=== PATIENT | male | born 1995 | race American Indian/Alaskan Native ===

== ENCOUNTER 2016-07-25 08:01 | Emergency (ER) | payer SELFPAY ==
[2016-07-25 08:26] LABS: Basophils % (Auto) 0.5 % (0.0-1.8); Eosinophils % (Auto) 0.9 % (0.0-4.3); Hematocrit 48.3 % (35.5-45.6); Hemoglobin 16.3 gm/dl (11.8-15.2); Mean Corpuscular HGB Conc 34 % (32-34); Mean Corpuscular Hemoglobin 31 pg (28-32); Mean Corpuscular Volume 91 fl (84-94); Platelet Count 259 K/mm3 (140-440); Red Blood Count 5.28 M/mm3 (3.65-5.03); Red Cell Distribution Width 12.8 % (13.2-15.2); White Blood Count 6.7 K/mm3 (4.5-11.0)
[2016-07-25 08:40] LABS: Anion Gap 20 mmol/L; BUN/Creatinine Ratio 13.33; Blood Urea Nitrogen 12 mg/dL (9-20); Calcium 9.1 mg/dL (8.4-10.2); Carbon Dioxide 27 mmol/L (22-30); Chloride 99.7 mmol/L (98-107); Glucose 117 mg/dL (75-100); Potassium 4.2 mmol/L (3.6-5.0); Sodium 142 mmol/L (137-145)
[2016-07-25] MEDS ORDERED: ZOFRAN IV ONE (09:04)
[2016-07-25] MEDS ORDERED: NACL 0.9% 1000 ML 1,000 ML IV ONE (09:04)
[2016-07-25 09:05] LABS: Bilirubin,Urine NEG (Negative); Blood,Urine NEG (Negative); Ketones,Urine TR mg/dL (Negative); Leukocyte Esterase,Urine NEG (Negative); Nitrite,Urine NEG (Negative); Protein,Urine <15 mg/dL mg/dL (Negative); RBC,Urine < 1.0 /HPF (0.0-6.0); Urobilinogen,Urine < 2.0 mg/dL (<2.0); WBC,Urine < 1.0 /HPF (0.0-6.0)
[2016-07-25] MEDS ORDERED: LACTATED RINGERS 1,000 ML IV ONE (09:05)
--- NOTE | 2016-07-25 09:09 | Emergency Department Report ---
ED N/V/D HPI - General Chief complaint: Nausea/Vomiting/Diarrhea Stated complaint: CANT HOLD FOOD DOWN Time Seen by Provider: 07/25/16 08:20 Source: patient Mode of arrival: Ambulatory Limitations: No Limitations - History of Present Illness Initial comments: This is a 21-year-old male well-nourished with nontoxic or ill in appearance that presents with nausea, vomiting, abdominal cramps for the past 5 days. Patient also c/o of diarrhea. Patient denies using any [id number] for the symptoms. Patient stated has been able to keep fluids with some food intake. Patient describes abdominal cramps as aching but denies abdominal pain. Patient describes abdominal cramps A level of a 3 out of a 10. Patient stated he went out to eat the day before and that night the symptoms has been occurring. Patient denies fever, chills, urinary symptoms, chest pain, shortness of breath, numbness or tingling sensation in extremities. Patient denies any drug allergies. MD complaint: nausea, vomiting, diarrhea, other (abdominal cramp) -: Gradual, days(s) (5) Description of Vomiting: food contents Description of Diarrhea: water Associated Abdominal Pain: No Location: diffuse Radiation: none Severity: mild Pain Scale: 3 Quality: cramping Consistency: intermittent Improves with: none Worsens with: none Associated Symptoms: denies other symptoms. denies: myalgias, chest pain, cough , diaphoresis, fever/chills, headaches, loss of appetite, malaise, nausea/ vomiting, rash, dysuria, shortness of breath, syncope, weakness - Related Data Previous Rx's Medication Instructions Recorded Last Taken Type Cyclobenzaprine [Flexeril 10 MG 10 mg PO TID PRN #20 tablet 12/05/14 Unknown Rx TAB] Ibuprofen [Motrin] 800 mg PO Q8HR #20 tablet 12/05/14 Unknown Rx traMADol [Ultram 50 MG tab] 50 mg PO Q6HR PRN #20 tablet 12/05/14 Unknown Rx Ondansetron [Zofran Odt] 4 mg PO Q8HR 5 Days 07/25/16 Unknown Rx Allergies Allergy/AdvReac Type Severity Reaction Status Date / Time No Known Allergies Allergy Unverified 12/05/14 09:55 ED Review of Systems ROS: Stated complaint: CANT HOLD FOOD DOWN Other details as noted in HPI Constitutional: denies: chills, fever Eyes: denies: eye pain, eye discharge, vision change ENT: denies: ear pain, throat pain Respiratory: denies: cough, shortness of breath, wheezing Cardiovascular: denies: chest pain, palpitations Endocrine: no symptoms reported Gastrointestinal: denies: abdominal pain, nausea, diarrhea Genitourinary: denies: urgency, dysuria Musculoskeletal: denies: back pain, joint swelling, arthralgia Skin: denies: rash, lesions Neurological: denies: headache, weakness, paresthesias Psychiatric: denies: anxiety, depression Hematological/Lymphatic: denies: easy bleeding, easy bruising ED Past Medical Hx - Past Medical History Previous Medical History?: No - Surgical History Past Surgical History?: No - Social History Smoking Status: Never Smoker Substance Use Type: None - Medications Home Medications: Home Medications Medication Instructions Recorded Confirmed Last Taken Type Cyclobenzaprine [Flexeril 10 MG 10 mg PO TID PRN #20 tablet 12/05/14 Unknown Rx TAB] Ibuprofen [Motrin] 800 mg PO Q8HR #20 tablet 12/05/14 Unknown Rx traMADol [Ultram 50 MG tab] 50 mg PO Q6HR PRN #20 tablet 12/05/14 Unknown Rx Ondansetron [Zofran Odt] 4 mg PO Q8HR 5 Days 07/25/16 Unknown Rx ED Physical Exam - General Limitations: No Limitations General appearance: alert, in no apparent distress - Head Head exam: Present: atraumatic, normocephalic - Eye Eye exam: Present: normal appearance, PERRL, EOMI - ENT ENT exam: Present: normal exam, normal orophraynx, mucous membranes moist, TM's normal bilaterally - Neck Neck exam: Present: normal inspection, full ROM. Absent: tenderness, meningismus, lymphadenopathy, thyromegaly - Respiratory Respiratory exam: Present: normal lung sounds bilaterally. Absent: respiratory distress, wheezes, rales, rhonchi, stridor - Cardiovascular Cardiovascular Exam: Present: regular rate, normal rhythm. Absent: systolic murmur, diastolic murmur, rubs, gallop - GI/Abdominal GI/Abdominal exam: Present: soft, normal bowel sounds. Absent: distended, tenderness, guarding, rebound, rigid, diminished bowel sounds, hyperactive bowel sounds, hypoactive bowel sounds, mass, bruit, pulsatile mass, hernia - Expanded GI/Abdominal Exam Expanded GI/Abdominal exam: Absent: psoas sign, obturator sign, Santos's sign, Rovsing's sign, tenderness at Mcburney's Point, ascites - Rectal Rectal exam: Present: deferred - Extremities Exam Extremities exam: Present: normal inspection, full ROM, normal capillary refill. Absent: tenderness, pedal edema, joint swelling, calf tenderness - Back Exam Back exam: Present: normal inspection, full ROM. Absent: tenderness, CVA tenderness (R), CVA tenderness (L), muscle spasm, paraspinal tenderness, vertebral tenderness, rash noted - Neurological Exam Neurological exam: Present: alert, oriented X3, CN II-XII intact, normal gait - Psychiatric Psychiatric exam: Present: normal affect, normal mood - Skin Skin exam: Present: warm, dry, intact, normal color. Absent: rash ED Course Vital Signs 07/25/16 08:06 Temperature 97.9 F Pulse Rate 67 Respiratory 18 Rate Blood Pressure 112/76 O2 Sat by Pulse 100 Oximetry - Reevaluation(s) Reevaluation #1: 07/25/16 10:00 Patient's data feels much better with no nausea or abdominal cramping. Patient thought a by mouth challenge well with no signs of vomiting or nausea. ED Medical Decision Making - Lab Data Result diagrams: 07/25/16 08:13 07/25/16 08:13 - Medical Decision Making Ed course: This is a 21-year-old male that presents with nausea and vomiting. 1- after my physical exam, lactated Ringer's 1000 mL and Zofran 4 mg IV as an prescribed. Patient stated he feels much better after medication. A by mouth challenge has been obtained with no signs of nausea or vomiting. Patient denies any nausea vomiting. Patient to do well. 2- lipase, amylase, CBC, BMP has been obtained in the ED with normal results. 3- patient received Zofran 4 mg by mouth at the time of discharge. 4- at time time of discharge, the patient does not seem toxic or ill in appearance. No acute signs of distress noted. Patient agrees to discharge treatment plan of care. No further questions noted by the patient. 5- patient was instructed to follow up with his primary care doctor in 3-5 days or if symptoms worsen and unbearable to report back to emergency room 6- Biliruben is elevated at 3.3. U/S was obtained of abdomen with normal findings. Dictated by Dr. Khan. Critical care attestation.: If time is entered above; I have spent that time in minutes in the direct care of this critically ill patient, excluding procedure time. ED Disposition Clinical Impression: Nausea & vomiting Qualifiers: Vomiting type: unspecified Vomiting Intractability: non-intractable Qualified Code(s): R11.2 - Nausea with vomiting, unspecified Disposition: DISCHARGED TO HOME OR SELFCARE Is pt being admited?: No Does the pt Need Aspirin: No Condition: Stable Instructions: Ondansetron (By mouth), Acute Nausea and Vomiting (ED) Additional Instructions: Follow-up with a primary care doctor in 3-5 days. if symptoms worsen and unbearable to report back to emergency room Take Zofran as needed in the presence of nausea/vomiting. Increase fluid intake as much as possible. Prescriptions: Ondansetron [Zofran Odt] 4 mg PO Q8HR 5 Days Referrals: KEILY CHAMBERLAIN MD [Primary Care Provider] - 3-5 Days KRISTOPHER SCHMID MD [Referring] - 3-5 Days [facility] [Outside] - 3-5 Days [facility] [Outside] - 3-5 Days Forms: Work/School Release Form(ED)
[2016-07-25 11:27] LABS: Amylase 91 units/L (27-131); Lipase 33 units/L (13-60)
[2016-07-25 11:31] LABS: Albumin 4.6 g/dL (3.9-5); Albumin/Globulin Ratio 1.5 %; Bilirubin,Direct 0.3 mg/dL (0-0.2); Bilirubin,Total 3.3 mg/dL (0.1-1.2); Total Protein 7.6 g/dL (6.3-8.2)
--- NOTE | 2016-07-25 12:23 | Ultrasound Report ---
ULTRASOUND ABDOMEN INDICATION: Elevated bilirubin, abdominal pain. COMPARISON: None similar. FINDINGS: Abdominal sonography demonstrates unremarkable liver. No gallstones or pericholecystic fluid. Gallbladder wall thickness is 1.8 mm. Common bile duct is 5.1 mm. Homogenous spleen estimated at 8.1 cm in length. No ascites. Visualized pancreas, nonaneurysmal abdominal aorta and IVC appear within normal limits. Nonhydronephrotic kidneys, 9.5 x 4.7 x 6 cm on the right with cortical thickness of 1.6 cm while 9.8 x 5.7 x 5.8 cm on the left with cortical thickness of 1.4 cm. CONCLUSION: No acute abdominal sonographic abnormality, as described. Thank you for the opportunity to participate in this patient's care.
[2016-07-25 12:56] VITALS: BP 110/76
== END 2016-07-25 12:56 | disposition home or self-care (01) ==
LOC: ED 08:01
DX: R11.2 Nausea with vomiting, unspecified (principal)
CPT/HCPCS: 36415; 76700; 80048; 80074; 81001; 82150; 83690; 85025; 96361; 96374; 99284; J2405; J7120

== ENCOUNTER 2016-12-14 14:47 | Emergency (ER) | payer SELFPAY ==
[2016-12-14 15:18] LABS: Basophils % (Auto) 0.1 % (0.0-1.8); Eosinophils % (Auto) 0.2 % (0.0-4.3); Hematocrit 48.1 % (35.5-45.6); Hemoglobin 16.3 gm/dl (11.8-15.2); Mean Corpuscular HGB Conc 34 % (32-34); Mean Corpuscular Hemoglobin 31 pg (28-32); Mean Corpuscular Volume 91 fl (84-94); Platelet Count 293 K/mm3 (140-440); Red Blood Count 5.28 M/mm3 (3.65-5.03); Red Cell Distribution Width 13.2 % (13.2-15.2); White Blood Count 9.4 K/mm3 (4.5-11.0)
[2016-12-14 16:03] LABS: Alanine Aminotransferase 14 units/L (7-56); Albumin 4.6 g/dL (3.9-5); Albumin/Globulin Ratio 1.7 %; Alkaline Phosphatase 50 units/L (35-129); Anion Gap 15 mmol/L; BUN/Creatinine Ratio 7; Blood Urea Nitrogen 8 mg/dL (9-20); Carbon Dioxide 28 mmol/L (22-30); Chloride 100.9 mmol/L (98-107); Glucose 85 mg/dL (75-100); Potassium 3.7 mmol/L (3.6-5.0); Sodium 140 mmol/L (137-145); Total Protein 7.3 g/dL (6.3-8.2)
--- NOTE | 2016-12-14 17:53 | Cat Scan Report ---
FINAL REPORT EXAM: CT HEAD/BRAIN WO CON HISTORY: headache, syncope TECHNIQUE: Noncontrast serial axial images from skull base to vertex. PRIORS: None. FINDINGS: There is no mass effect or midline shift. There are no abnormal intra or extra-axial fluid collections. Cortical sulci and lateral ventricles are within normal limits for size and configuration. Basilar cisterns are patent. No acute intracranial hemorrhage is identified. Visualized paranasal sinuses and mastoid air cells are well aerated. No acute osseous abnormality is identified. IMPRESSION: 1. No abnormal mass or acute intracranial hemorrhage is identified.
[2016-12-14] MEDS ORDERED: NACL 0.9% 1000 ML 1,000 ML IV ONE (18:18)
--- NOTE | 2016-12-14 18:24 | Emergency Department Report ---
ED Syncope HPI - General Chief Complaint: Headache Stated Complaint: SYNCOPE Time Seen by Provider: 12/14/16 17:28 - History of Present Illness Initial Comments: 21-year-old male here with complaint of syncopal episode. Patient was walking course history and began feeling hot and next thing he remembers he was found on the ground with paramedics around him. He denies any complaints at this point. He does have some mild head pain or he may have struck his head. No obvious laceration. He denies chest pain shortness of breath palpitations. No family history of syncope. Timing/Prior Episodes: no prior history Precipitating Factors: Positive: lightheadedness Loss of Consciousness: brief (seconds) Current Symptoms: back to normal - Related Data Allergies/Adverse Reactions: Allergies No Known Allergies Allergy (Verified 12/14/16 14:59) Home Medications: Ambulatory Orders Cyclobenzaprine [Flexeril 10 MG TAB] 10 mg PO TID PRN #20 tablet 12/05/14 Ibuprofen [Motrin] 800 mg PO Q8HR #20 tablet 12/05/14 traMADol [Ultram 50 MG tab] 50 mg PO Q6HR PRN #20 tablet 12/05/14 Ondansetron [Zofran Odt] 4 mg PO Q8HR 5 Days 07/25/16 ED Review of Systems ROS: Stated complaint: SYNCOPE Other details as noted in HPI Comment: All other systems reviewed and negative Respiratory: denies: cough, orthopnea Cardiovascular: syncope. denies: chest pain, palpitations Endocrine: flushing. denies: excessive sweating Gastrointestinal: denies: abdominal pain, nausea, vomiting Genitourinary: denies: urgency, dysuria Neurological: denies: headache, weakness ED Past Medical Hx - Past Medical History Previous Medical History?: No - Surgical History Past Surgical History?: No - Family History Family history: no significant - Social History Smoking Status: Never Smoker Substance Use Type: None - Medications Home Medications: Home Medications Medication Instructions Recorded Confirmed Last Taken Type Cyclobenzaprine [Flexeril 10 MG 10 mg PO TID PRN #20 tablet 12/05/14 Unknown Rx TAB] Ibuprofen [Motrin] 800 mg PO Q8HR #20 tablet 12/05/14 Unknown Rx traMADol [Ultram 50 MG tab] 50 mg PO Q6HR PRN #20 tablet 09/28/15 Unknown Rx Ondansetron [Zofran Odt] 4 mg PO Q8HR 5 Days 07/25/16 Unknown Rx ED Physical Exam - General Limitations: No Limitations General appearance: alert, in no apparent distress - Head Head exam: Present: atraumatic, normocephalic - Eye Eye exam: Present: normal appearance. Absent: scleral icterus, conjunctival injection - ENT ENT exam: Present: mucous membranes moist - Neck Neck exam: Present: normal inspection - Respiratory Respiratory exam: Present: normal lung sounds bilaterally. Absent: respiratory distress, wheezes - Cardiovascular Cardiovascular Exam: Present: regular rate, normal rhythm, normal heart sounds. Absent: systolic murmur, diastolic murmur, rubs, gallop - GI/Abdominal GI/Abdominal exam: Present: soft, normal bowel sounds. Absent: distended, tenderness - Rectal Rectal exam: Present: deferred - Extremities Exam Extremities exam: Present: normal inspection - Back Exam Back exam: Present: normal inspection - Neurological Exam Neurological exam: Present: alert, oriented X3 - Psychiatric Psychiatric exam: Present: normal affect, normal mood - Skin Skin exam: Present: warm, dry, intact, normal color. Absent: rash ED Course Vital Signs 12/14/16 15:00 Temperature 98.6 F Pulse Rate 100 H Respiratory 18 Rate Blood Pressure 109/68 O2 Sat by Pulse 100 Oximetry ED Medical Decision Making - Lab Data Result diagrams: 12/14/16 15:06 12/14/16 15:06 Laboratory Results - last 24 hr 12/14/16 12/14/16 15:06 15:06 WBC 9.4 RBC 5.28 H Hgb 16.3 H Hct 48.1 H MCV 91 MCH 31 MCHC 34 RDW 13.2 Plt Count 293 Lymph % (Auto) 7.3 L Lamb % (Auto) 6.4 Eos % (Auto) 0.2 Baso % (Auto) 0.1 Lymph # 0.7 L Lamb # 0.6 Eos # 0.0 Baso # 0.0 Seg Neutrophils % 86.0 H Seg Neutrophils # 8.1 H Sodium 140 Potassium 3.7 Chloride 100.9 Carbon Dioxide 28 Anion Gap 15 BUN 8 L Creatinine 1.1 Estimated GFR > 60 BUN/Creatinine Ratio 7 Glucose 85 Calcium 9.0 Total Bilirubin 2.60 H AST 22 ALT 14 Alkaline Phosphatase 50 Total Protein 7.3 Albumin 4.6 Albumin/Globulin Ratio 1.7 - EKG Data -: EKG Interpreted by Me - EKG Data 12/14/16 18:26 Sinus arrhythmia rate 84 normal axis normal intervals no ST-T wave changes - Medical Decision Making 21-year-old male with a syncopal episode. Presents emergency Department with no obvious source for his syncope. Patient states he felt somewhat warm right before he passed out. EKG and labs are unremarkable. Plan to get a chest x- ray and if negative plan discharge patient home with after IV fluids. Head CT ordered prior to my evaluation is negative. Chest x-ray negative. Portions of this chart were dictated with dictation software. There may be dictation errors contained within this note. Critical care attestation.: If time is entered above; I have spent that time in minutes in the direct care of this critically ill patient, excluding procedure time. ED Disposition Clinical Impression: Syncope Disposition: DC-01 TO HOME OR SELFCARE Is pt being admited?: No Condition: Stable Instructions: Syncope (ED) Referrals: PRIMARY CARE, [Primary Care Provider] - 3-5 Days
--- NOTE | 2016-12-14 19:02 | XRay Report ---
FINAL REPORT EXAM: XR CHEST 1V AP HISTORY: syncope TECHNIQUE: Single-view chest PRIORS: None. FINDINGS: No focal consolidations are seen in the lungs.The cardiomediastinal silhouette is within normal limits for size and contour. Thoracic scoliosis is noted. IMPRESSION: 1. No definite radiographic evidence of acute cardiopulmonary disease.
[2016-12-14 19:42] VITALS: BP 113/72
== END 2016-12-14 19:39 | disposition home or self-care (01) ==
LOC: ED 14:47
DX: R55 Syncope and collapse (principal)
CPT/HCPCS: 36415; 70450; 71010; 80053; 85025; 93005; 93010; 96360; 99284; J7030

== ENCOUNTER 2019-01-22 13:40 | Emergency (ER) | payer SELFPAY ==
[2019-01-22 15:28] VITALS: BP 115/72
--- NOTE | 2019-01-22 16:24 | Event Note ---
ED Screening Note Date of service: 01/22/19 Time: 16:22 ED Screening Note: 23 y o male resents with left ankle/foot pain s/p injury 5 days ago cc of worsening pain with walking and applied pressure This initial assessment/diagnostic orders/clinical plan/treatment(s) is/are subject to change based on patients health status, clinical progression and re- assessment by fellow clinical providers in the ED. Further treatment and workup at subsequent clinical providers discretion. Patient/guardian urged not to elope from the ED as their condition may be serious if not clinically assessed and managed. Initial orders include: xr ankle/foot acc eval
--- NOTE | 2019-01-22 16:44 | XRay Report ---
LEFT ANKLE 3 VIEWS INDICATION / CLINICAL INFORMATION: Left ankle injury 5 days ago, COMPARISON: None available. FINDINGS: BONES / JOINT(S): No acute fracture or subluxation. No significant arthritis. SOFT TISSUES: There is mild soft tissue swelling laterally and anteriorly. ADDITIONAL FINDINGS: None. Signer Name: Sreekanth Beckett MD Signed: 01/22/2019 4:39 PM Workstation Name: [email or web address]
--- NOTE | 2019-01-22 17:07 | Emergency Department Report ---
ED Lower Extremity HPI - General Chief Complaint: Extremity Injury, Lower Stated Complaint: LT FOOT INJURY Time Seen by Provider: 01/22/19 16:45 Source: patient Mode of arrival: Ambulatory Limitations: No Limitations - History of Present Illness Initial Comments: This is a 23-year-old -[place] male who presents to the emergency room with left ankle pain for 5 days. Patient states he injured his left ankle while at work last Friday. Patient states he fell in between a 18 [address]roy truck and a dock. Patient states his left foot got caught in a hole. He is experiencing pain and swelling to left lateral ankle. Patient states he is applying an Mariano, heat, and Epsom salts soaks with minimal improvement of symptoms. Patient states he is able to apply weight which increased pain. He denies numbness or tingling, bruising, weakness, or warmth to touch. MD Complaint: ankle injury (left) Onset/Timin -: days(s) Injury: Ankle: Left Type of Injury: unknown Place: work Severity: moderate Severity scale (0 -10): 6 Improves With: NSAID, cold therapy Worsens With: weight bearing, movement Context: fall Associated Symptoms: swelling, able to partially bear weight, ambulatory. denies: snap/pop sensation, numbness, tingling, unable to bear weight Treatments Prior to Arrival: cold therapy, NSAIDS - Related Data Previous Rx's Medication Instructions Recorded Last Taken Type Cyclobenzaprine [Flexeril 10 MG 10 mg PO TID PRN #20 tablet 12/05/14 Unknown Rx TAB] Ibuprofen [Motrin] 800 mg PO Q8HR #20 tablet 12/05/14 Unknown Rx traMADoL [Ultram 50 MG tab] 50 mg PO Q6HR PRN #20 tablet 12/05/14 Unknown Rx Ondansetron [Zofran Odt] 4 mg PO Q8HR 5 Days tab.rapdis 07/25/16 Unknown Rx Ibuprofen [Motrin 600 MG tab] 600 mg PO Q8H PRN #20 tablet 01/22/19 Unknown Rx Allergies Allergy/AdvReac Type Severity Reaction Status Date / Time No Known Allergies Allergy Verified 12/14/16 14:59 ED Review of Systems ROS: Stated complaint: LT FOOT INJURY Other details as noted in HPI Constitutional: denies: chills, fever Respiratory: denies: cough, shortness of breath, wheezing Cardiovascular: denies: chest pain, palpitations Gastrointestinal: denies: abdominal pain, nausea, diarrhea Musculoskeletal: joint swelling ( left ankle), arthralgia (left ankle). denies: back pain Skin: denies: rash, lesions Neurological: denies: headache, weakness, paresthesias Psychiatric: denies: anxiety, depression ED Past Medical Hx - Past Medical History Previous Medical History?: No - Surgical History Past Surgical History?: No - Social History Smoking Status: Never Smoker - Medications Home Medications: Home Medications Medication Instructions Recorded Confirmed Last Taken Type Cyclobenzaprine [Flexeril 10 MG 10 mg PO TID PRN #20 tablet 12/05/14 Unknown Rx TAB] Ibuprofen [Motrin] 800 mg PO Q8HR #20 tablet 12/05/14 Unknown Rx traMADoL [Ultram 50 MG tab] 50 mg PO Q6HR PRN #20 tablet 12/05/14 Unknown Rx Ondansetron [Zofran Odt] 4 mg PO Q8HR 5 Days tab.rapdis 07/25/16 Unknown Rx Ibuprofen [Motrin 600 MG tab] 600 mg PO Q8H PRN #20 tablet 01/22/19 Unknown Rx ED Physical Exam - General Limitations: No Limitations General appearance: alert, in no apparent distress - Respiratory Respiratory exam: Present: normal lung sounds bilaterally. Absent: respiratory distress - Cardiovascular Cardiovascular Exam: Present: regular rate, normal rhythm. Absent: systolic murmur, diastolic murmur, rubs, gallop - Extremities Exam Extremities exam: Present: full ROM, normal capillary refill. Absent: calf tenderness - Expanded Lower Extremity Exam Left Knee exam: Present: normal inspection, full ROM Lower Leg exam: Present: normal inspection, full ROM Ankle exam: Present: full ROM (pain with FROM), tenderness (tenderness and swelling to lateral malleolus), swelling. Absent: abrasion, laceration, ecchymosis, deformity, crepidus, dislocation, erythema, anterior draw sign Foot/Toe exam: Present: normal inspection, full ROM Neuro vascular tendon exam: Present: no vascular compromise Gait: Positive: observed and limited by pain - Neurological Exam Neurological exam: Present: alert, oriented X3, normal gait - Expanded Neurological Exam Expanded Sensory exam: Lower Extremity Light Touch: Normal, Lower Extremity Pin Prick: Normal, Lower Extremity Temperature: Normal, LE 2 Point Discrimination: Normal Motor strength exam: RUE: 5, LUE: 5 DTR: ankle (R): 4+, ankle (L): 4+ Best Eye Response (Scott): (4) open spontaneously Best Motor Response (Scott): (6) obeys commands Best Verbal Response (Magda): (5) oriented Scott Total: 15 - Psychiatric Psychiatric exam: Present: normal affect, normal mood - Skin Skin exam: Present: warm, dry, intact, normal color. Absent: rash ED Course Vital Signs 01/22/19 01/22/19 15:27 15:46 Temperature 98.4 F 98.4 F Pulse Rate 79 79 Respiratory 18 17 Rate Blood Pressure 115/72 Blood Pressure 115/72 [Left] O2 Sat by Pulse 100 100 Oximetry ED Lower Extremity MDM - Radiology Data Radiology results: report reviewed LEFT ANKLE 3 VIEWS INDICATION / CLINICAL INFORMATION: Left ankle injury 5 days ago, COMPARISON: None available. FINDINGS: BONES / JOINT(S): No acute fracture or subluxation. No significant arthritis. SOFT TISSUES: There is mild soft tissue swelling laterally and anteriorly. ADDITIONAL FINDINGS: None. - Medical Decision Making Patient was examined by me. Patient is nontoxic appearing and stable. Vitals are normal. Obtained x-ray of left ankle with no acute radiographic findings. Given analgesics while in the ER. There is tenderness TTP and swelling to the lateral left malleolus, FROM. Uncomplicated Left Lateral Ankle Sprain. Plan: RICE therapy instructions given. Mariano wrap applied to left ankle for compression. OTC Acetaminophen up to four times a day for pain. Start ibuprofen by mouth three times a day for 5-14 days. Start early range of motion (focus on dorsiflexion) as soon as possible. Patient educated on strengthening for ankle with handout given. Follow up in 1 month or sooner if worsening/no improvement with PCP. Patient informed of results and plan. Patient discharged home in stable condition. Critical care attestation.: If time is entered above; I have spent that time in minutes in the direct care of this critically ill patient, excluding procedure time. ED Disposition Clinical Impression: Left lateral ankle pain, Sprain and strain of ankle Disposition: TO HOME OR SELFCARE Is pt being admited?: No Condition: Stable Instructions: Ankle Sprain (ED), Arthralgia (ED), Ankle Exercises (GEN) Additional Instructions: Rest Use ice or heat on affected area for 20 minutes and off for 2 hours. Take pain medication as needed for pain. Follow up with Primary Care Provider in 2-3 days. Prescriptions: Ibuprofen [Motrin 600 MG tab] 600 mg PO Q8H PRN #20 tablet PRN Reason: Pain Referrals: [facility] [place] [Outside] - 3-5 Days [facility] [Outside] - 3-5 Days [facility] [Outside] - 3-5 Days DOV ACOSTA MD [Staff Physician] - 3-5 Days Forms: Work/School Release Form(ED) Time of Disposition: 17:35
== END 2019-01-22 18:15 | disposition home or self-care (01) ==
LOC: ED 13:40
DX: S93.402A Sprain of unspecified ligament of left ankle, initial encounter (principal); X58.XXXA Exposure to other specified factors, initial encounter; Y93.89 Activity, other specified; Y92.89 Other specified places as the place of occurrence of the external cause; Y99.8 Other external cause status